=== PATIENT | male | born 1970 | race American Indian/Alaskan Native ===

== ENCOUNTER 2017-02-23 08:12 | Emergency (ER) | payer SELFPAY ==
[2017-02-23 08:41] VITALS: BP 116/80
--- NOTE | 2017-02-23 10:53 | Emergency Department Report ---
HPI - General Chief Complaint: Back Pain/Injury Time Seen by Provider: 02/23/17 10:02 - [facility] HPI: Patient is a 46-year-old female who presents to ED complaining of low back pain intermittently 6 months. Patient states 4 days ago. Has gotten progressively worse and is worse with standing with certain movements. Patient states pain is localized to the lower back region right-sided more than lasts does not radiate down his legs. Patient denies recent trauma. Patient denies fevers/chills/nausea/vomiting/abdominal pain as chest pain or any other problems. ED Past Medical Hx - Past Medical History Previous Medical History?: No - Surgical History Past Surgical History?: No - Social History Smoking Status: Never Smoker Substance Use Type: None - Medications Home Medications: Home Medications Medication Instructions Recorded Confirmed Last Taken Type Azithromycin [Zithromax Z-MAURI] 250 mg PO DAILY #6 tab 11/02/13 Unknown Rx Benzonatate [Tessalon Perle] 100 mg PO Q8H PRN #30 capsule 11/02/13 Unknown Rx HYDROcodone/APAP 5-325 [[place] 1 each PO Q6HR PRN #12 tablet 11/02/13 Unknown Rx 5-325 mg TAB] Cyclobenzaprine [Flexeril] 10 mg PO QHS PRN #24 tablet 02/23/17 Unknown Rx Ibuprofen [Motrin] 800 mg PO Q8HR PRN #30 tablet 02/23/17 Unknown Rx ED Review of Systems ROS: Stated complaint: BACK PAIN Other details as noted in HPI Constitutional: denies: chills, fever Eyes: denies: eye pain, eye discharge, vision change ENT: denies: ear pain, throat pain Respiratory: denies: cough, shortness of breath, wheezing Cardiovascular: denies: chest pain, palpitations Endocrine: no symptoms reported Gastrointestinal: denies: abdominal pain, nausea, diarrhea Genitourinary: denies: urgency, dysuria Musculoskeletal: myalgia. denies: back pain, joint swelling, arthralgia Skin: denies: rash, lesions Neurological: denies: headache, weakness, paresthesias Psychiatric: denies: anxiety, depression Hematological/Lymphatic: denies: easy bleeding, easy bruising Physical Exam - Physical Exam Vital Signs: Vital Signs 02/23/17 08:35 Temperature 97.5 F L Pulse Rate 55 L Respiratory 16 Rate Blood Pressure 116/80 O2 Sat by Pulse 99 Oximetry Physical Exam: GENERAL: Alert and oriented x3, no apparent distress, Normal Gait, atraumatic. HEAD: Head is normocephalic and a-traumatic. EYES: Extra ocular muscles are intact. Pupils are equal, round, and reactive to light and accommodation. EARS: symetrical, atraumatic, non tender, ear canal clear and moderate cerumen, tympanic membrance non inflamed. gross auditory nml bilaterally. NOSE: Nose symetrical, Nontender,Nares appeared normal. MOUTH:Mouth is well hydrated and without lesions. Patent airways. NECK: Supple. Non edematous, No carotid bruits. No lymphadenopathy or thyromegaly. LUNGS: Symetrical with respiration, No wheezing, no rales or crackles, CTAB. HEART: S1, S2 present, regular rate and rhythm without murmur, no rubs, no gallops. ABDOMEN: No organomegaly was noted,Positive bowel sounds, soft, and non- distended. . Nontender to palpation on all Quadrants, NO CVA tenderness. Tenderness to palpation on the right side lower back muscles. Full range of motion of the back. EXTREMITIES/MUSCULOSKELETAL: No cyanosis, clubbing, rash, lesions or edema. Full ROM bilaterally. UE/LE Pulses 2+ bilaterally. LE and UE 5+ strength bilaterally NEUROLOGIC: No focal Deficit, Cranial nerves II through XII are grossly intact. No loss of sensation, SKIN: Warm and dry, No lesions, No ulceration or induration present. ED Course Vital Signs 02/23/17 08:35 Temperature 97.5 F L Pulse Rate 55 L Respiratory 16 Rate Blood Pressure 116/80 O2 Sat by Pulse 99 Oximetry ED Medical Decision Making - Medical Decision Making 46-year-old male presents to ED with chronic lower back myalgia ED course: Patient received analgesia milligrams of Motrin. Discussed the patient's transient reduced extraneous activity. Discussed the patient heat application 3 times a day. Discussed medication will be prescribed to help with muscle type pain. Excellent discussed or as necessary to Flexeril and to only take it at night or at bedtime. Vital signs are stable patient is in no acute respiratory distress. Discussed the patient to follow up with primary care physician. Critical care attestation.: If time is entered above; I have spent that time in minutes in the direct care of this critically ill patient, excluding procedure time. ED Disposition Clinical Impression: Myalgia Chronic lower back pain Qualifiers: Back pain laterality: bilateral Sciatica presence: without sciatica Qualified Code(s): M54.5 - Low back pain Disposition: DISCHARGED TO HOME OR SELFCARE Is pt being admited?: No Does the pt Need Aspirin: No Condition: Stable Instructions: Trigger Point Pain (ED), Musculoskeletal Pain (ED), Chronic Back Pain (ED) Prescriptions: Cyclobenzaprine [Flexeril] 10 mg PO QHS PRN #24 tablet PRN Reason: Muscle Spasm Ibuprofen [Motrin] 800 mg PO Q8HR PRN #30 tablet PRN Reason: Pain Referrals: PRIMARY CAREMD [Primary Care Provider] - 3-5 Days QUINTON MONTIEL MD [Referring] - 3-5 Days NAOMI COBURN [automation and controls instructor 1] - 3-5 Days APRIL STRANGE MD [Staff Physician] - 3-5 Days ROSE HARPER MD [Staff Physician] - 3-5 Days JOYCE RIVAS MD [Referring] - 3-5 Days Forms: Work/School Release Form Time of Disposition: 11:06
[2017-02-23] MEDS ORDERED: MOTRIN PO ONE (11:08)
== END 2017-02-23 11:40 | disposition home or self-care (01) ==
LOC: ED 08:12
DX: M54.5 Low back pain (principal); M79.1 Myalgia
CPT/HCPCS: 99282